=== PATIENT | male | born 1965 | race Two or more races ===

== ENCOUNTER 2016-10-02 08:21 | Emergency (ER) | payer OTHER ==
[2016-10-02] MEDS ORDERED: HYDROCODONE/ACETAMINOPHEN 5/325MG TABLET ONE (09:16)
== END 2016-10-02 09:24 | disposition home or self-care (01) ==
LOC: ED 08:21
DX: S16.1XXA Strain of muscle, fascia and tendon at neck level, initial encounter (principal); V43.52XA Car driver injured in collision with other type car in traffic accident, initial encounter; Y92.410 Unspecified street and highway as the place of occurrence of the external cause
CPT/HCPCS: 99282; 99283; A9270